=== PATIENT | male | born 1955 | race Caucasian/White ===

== ENCOUNTER 2016-08-06 11:15 | Observation (INO) | payer BC ==
[~2016-08-06] VITALS: Ht 172.7 cm; Wt 98.9 kg
--- NOTE | ~2016-08-06 | EKG ---
[address] [place] [place] [address] ELECTROCARDIOGRAM REPORT Name: CARISSA SHAH Room #: 438-P [facility].R.#: [id number] Admission: 08/06/16 Attend Phys: Luis Miguel Biswas MD Discharge: Date of : 51 Report #: [id number] THIS REPORT FOR: //name// [facility] ED Test Date: 2016-08-06 Test Time: 11:23:43 Pat Name: CARISSA SHAH Department: Room: 438 Gender: M Transcription Coordinator: NILESH : 1955 Requested By: Bernabe Dc Order Number: [id number] MD: Osito Rocha Measurements Intervals [place] Rate: 56 P: 50 IL: 133 QRS: 0 QRSD: 117 T: 5 QT: 440 QTc: 425 Interpretive Statements Sinus bradycardia Baseline wander in lead(s) V2 No previous ECG available for comparison Electronically Signed On 08-07-2016 8:47:18 CDT by Osito Rocha [email or web address] <ELECTRONICALLY SIGNED> By: Osito Rocha MD, [facility] 08/07/16 0847 [id number] 112 Osito Rocha MD, FACC /EPI
--- NOTE | ~2016-08-06 | HC ---
[facility] [place] [address] CONSULTATION Name: CARISSA SHAH Room #: 438-P [facility] Agueda Stern#: [id number] Admission: 08/06/16 Attend Phys: Luis Miguel Biswas MD Discharge: 08/07/16 Date of : 51 Report #: [id number] THIS REPORT FOR: //name// CC: Luis Miguel Payanie Bhavya HISTORY OF PRESENT ILLNESS: The patient is a 61-year-old gentleman with left shoulder and upper back pain for the past 8 days. He saw his family physician and was admitted through the emergency department for further evaluation. His history comes from interview with the patient as well as review provided outpatient records, which are summarized in the note. 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 Eight days ago, he developed left shoulder and upper back pain. This seemed to be worse with a deep breath. This pain has been persistent and unremitting, although has been worse at certain times. Exertion seems to make the pain worse. There is no real clear positional component to the pain. He was given a nitroglycerin that seemed to improve the pain, which never went completely away and has persisted. Serial EKGs have been normal. Initial troponin level is normal. Followup troponin is pending. He denies heart failure symptoms, palpitations, near syncope, or syncope. ALLERGIES: There are no known drug allergies. MEDICATIONS: Medicines include dapsone 25 mg daily and 800 mg daily. PAST MEDICAL HISTORY: His past history and medical records have been reviewed and include a history of macrocytosis, hemochromatosis, this is not required phlebotomy; sigmoid diverticulitis with a completed 10-day antibiotic course. He does report low grade fevers several days last week and ongoing crampy abdominal pain. 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 FAMILY HISTORY: Unremarkable for premature coronary artery disease. REVIEW OF SYSTEMS: All systems negative except as that noted above. PHYSICAL EXAMINATION: GENERAL: He is a pleasant gentleman, in no distress. VITAL SIGNS: Blood pressure is 128/77, heart rate of 50 and regular, he is afebrile, 5 feet 8 inches tall, 218 pounds. HEENT: There are neither xanthelasma, subcutaneous xanthomata, oral mucosal or digital cyanosis, or kyphoscoliosis present. CHEST: Clear to auscultation and percussion. CARDIAC: Regular rate and rhythm with normal S1, S2. No murmurs or rubs. ABDOMEN: Soft and nontender. [facility] [address] [address] CONSULTATION Name: CARISSA SHAH OLAF Room #: 438-P [facility] Agueda M.R.#: [id number] Admission: 08/06/16 Attend Phys: Luis Miguel Biswas MD Discharge: 08/07/16 Date of : 51 Report #: [id number] EXTREMITIES: Without cyanosis, clubbing or edema. Radial pulses are 2+. NEUROLOGIC: Alert with a nonfocal exam. LABORATORY DATA: EKG sinus rhythm with right ventricular condition delay. IMPRESSION: 1. Left chest and shoulder pain with mixed features for ischemia. There is a fairly consistent pleuritic component, possible musculoskeletal pain versus pleurisy. 2. Recent diverticulitis with recurrent crampy lower abdominal pain and low-grade fevers. 3. Prior tobacco dependency. RECOMMENDATIONS: 1. Serial cardiac enzymes. 2. Stress echocardiogram. 3. Consider GI evaluation for abdominal pain. Thank you for asking me to participate in the patient's care. <ELECTRONICALLY SIGNED> By: Osito Rocha MD, FACC 08/08/16 1619 [id number] Osito Rocha MD, FACC /nt
--- NOTE | ~2016-08-06 | EXE ---
[facility] [address] [place] [address] STRESS ECHOCARDIOGRAM Name: CARISSA SHAH Room #: 438-P [facility] [place] M.R.#: [id number] Admission: 08/06/16 Attend Phys: Luis Miguel Biswas MD Discharge: 08/07/16 Date of : 51 Date of Service: 08/07/16 1608 Report #: [id number] THIS REPORT FOR: //name// APPROVED REPORT Exam: Stress Echocardiogram Patient Location: In-Patient Room #: 438 HR: 62 bpm Procedure The patient underwent an Exercise Stress Test using the Simeon Protocol. Blood pressure, heart rate, and EKG were monitored. An Echocardiogram was performed by earth science technician in four stages in quad fashion. At peak stress, four selected images were obtained and placed side by side with resting images for comparison. Testing Details Test: Exercise stress testing was performed using a Simeon protocol. HR Resting HR: 62 bpm Max Heart Rate (APMHR): 157 bpm Max HR Achieved: 171 bpm Target HR (85% APMHR): 133 bpm % of APMHR: 108 Recovery HR: 80 bpm HR response to stress: Normal HR response to stress BP Resting BP: 138/92 mmHg Max BP: 200/80 mmHg Recovery BP: 130/74 mmHg ECG Resting ECG: Sinus Rhythm ST Change: Normal Maximum ST Deviation: 0 mm Recovery ECG: Sinus Rhythm Recovery ST Change: Non-ischemic Recovery ST Deviation: 0 mm Clinical Reason for Termination: Maximal effort Stress Symptoms: Dyspnea Exercise duration: 5.5 min [facility] [address] [address] STRESS ECHOCARDIOGRAM Name: CARISSA SHAH Room #: 438-P [facility] [place] [facility].#: [id number] Admission: 08/06/16 Attend Phys: Luis Miguel Biswas MD Discharge: 08/07/16 Date of : 51 Date of Service: 08/07/16 1608 Report #: [id number] Exercise capacity: 7 METs Overall Exercise Capacity for Age: Poor Angina Score: None Stress ECG Conclusion Kyle Treadmill Score is 5.5 which is Low risk. Pre-Stress Echo The resting Echocardiogram showed normal left ventricular contractility with an estimated Ejection Fraction of about >55%. Post-Stress Echo The stress Echocardiogram showed normal left ventricular contractility with an estimated Ejection Fraction of about 65-70%. Clinical Normal augmentation of myocardial wall segments using a 17 segment model. Conclusion Clinical Response: Non-ischemic Stress ECG Response: Non-ischemic Stress Echo Images: Non-ischemic Other Information Study Quality: Good <ELECTRONICALLY SIGNED> By: Osito Rocha MD, [facility] 08/07/16 1608 1608 1608 Osito Rocha MD, FACC /INF
[~2016-08-06 11:15] MED LIST: CIPRO500 MG PO; FLAGYL500 MG PO; NORCO 5-325 TA1 EACH PO
[2016-08-06 11:22] VITALS: BP 160/76
[2016-08-06 11:42] LABS: BASOPHILS 1.2 % (0.0-2.0); EOSINOPHILS 1.9 % (0.0-3.0); HEMATOCRIT 40.5 % (42.0-52.0); HEMOGLOBIN 14.2 gm/dL (14.0-18.0); LYMPHOCYTES 35.9 % (24.0-44.0); MANUAL DIFF NO; MCH 34.6 pg (26.0-34.0); MCHC 35.2 g/dL (28.0-37.0); MCV 98.4 fL (80.0-100.0); PLATELET COUNT 273 thou/uL (150-400); RBC 4.11 mil/uL (4.50-6.00); RDW 13.1 % (10.5-14.5); WBC 5.7 thou/uL (4.0-11.0)
[2016-08-06 11:54] LABS: ANION GAP 9 mmol/L (7-16); BUN 9 mg/dL (7-18); CALCIUM 8.8 mg/dL (8.5-10.1); CHLORIDE 106 mmol/L (98-107); CO2 25 mmol/L (21-32); CREATININE 1.1 mg/dL (0.7-1.3); GLUCOSE 95 mg/dL (74-106); POTASSIUM 4.3 mmol/L (3.5-5.1); SODIUM 140 mmol/L (136-145)
[2016-08-06 12:06] LABS: NT-PRO BRAIN NAT PEPTIDE 107 pg/mL (<300); TROPONIN-I < 0.04 ng/mL (<0.04-0.07)
[2016-08-06 12:51] LABS: URINE BILIRUBIN 1+ (Negative); URINE BLOOD NEGATIVE (Negative); URINE GLUCOSE-RANDOM* NEGATIVE (Negative); URINE KETONES NEGATIVE (Negative); URINE LEUKOCYTES-REFLEX NEGATIVE (Negative); URINE PROTEIN (DIPSTICK) TRACE (Negative); URINE SPECIFIC GRAVITY >= 1.030 (1.003-1.035)
[2016-08-06 13:00] LABS: ICTOTEST (BILI CONFIRMATORY) Positive (Negative); URINE COLOR DARK YELLOW
[2016-08-06 14:44] VITALS: BP 128/77
[2016-08-06] MEDS ORDERED: DAPSONE25 MG PO (14:46)
[2016-08-06] MEDS ORDERED: CIMETIDINE800 MG PO (14:46)
[2016-08-06] MEDS ORDERED: NEPHROCAPS SOFT1 CAP PO (14:47)
[2016-08-06 19:36] VITALS: BP 123/63
[2016-08-07 01:00] LABS: ANION GAP 6 mmol/L (7-16); BUN 13 mg/dL (7-18); CALCIUM 8.6 mg/dL (8.5-10.1); CHLORIDE 104 mmol/L (98-107); CO2 27 mmol/L (21-32); CREATININE 1.2 mg/dL (0.7-1.3); GLUCOSE 109 mg/dL (74-106); POTASSIUM 4.1 mmol/L (3.5-5.1); SODIUM 137 mmol/L (136-145)
[2016-08-07 01:07] LABS: ALBUMIN 2.9 g/dL (3.4-5.0); ALKALINE PHOSPHATASE 56 U/L (46-116); CHOLESTEROL 145 mg/dL (<200); HDL CHOLESTEROL 22 mg/dL (>40); MAGNESIUM 2.3 mg/dL (1.8-2.4); SGOT 29 U/L (15-37); SGPT 41 U/L (30-65); TC:HDL 6.6 Ratio (Not establshd); TOTAL BILIRUBIN 0.3 mg/dL (<0.1-1.0); TOTAL PROTEIN 6.4 g/dL (6.4-8.2); TRIGLYCERIDE 554 mg/dL (<150); TROPONIN-I < 0.04 ng/mL (<0.04-0.07); VLDL 111 mg/dL (<40)
[2016-08-07 05:23] VITALS: BP 137/75
[2016-08-07 07:55] VITALS: BP 119/69
[2016-08-07 10:44] VITALS: BP 119/69
== END 2016-08-07 11:18 | disposition home or self-care (01) ==
LOC: ER 11:15 → EROBS 13:59 → 4S 14:48
PROVIDERS: Emergency Medicine; Nurse Practitioner
DX: R07.89 Other chest pain (principal); R10.30 Lower abdominal pain, unspecified; L30.9 Dermatitis, unspecified; K57.92 Diverticulitis of intestine, part unspecified, without perforation or abscess without bleeding; E83.119 Hemochromatosis, unspecified; G47.30 Sleep apnea, unspecified; R00.1 Bradycardia, unspecified; J30.2 Other seasonal allergic rhinitis; M25.512 Pain in left shoulder; C80.1 Malignant (primary) neoplasm, unspecified; Z72.89 Other problems related to lifestyle; Z87.891 Personal history of nicotine dependence

== ENCOUNTER 2016-08-26 09:14 | Emergency (ER) | payer BC ==
[~2016-08-26] VITALS: Ht 172.7 cm; Wt 90.7 kg
[~2016-08-26 09:14] MED LIST changes: +CIMETIDINE800 MG PO; +DAPSONE25 MG PO; +NEPHROCAPS SOFT1 CAP PO
[2016-08-26] MEDS ORDERED: AUGMENTIN 875875 MG PO (09:40)
== END 2016-08-26 10:17 | disposition home or self-care (01) ==
LOC: ER 09:14
DX: S60.943A Unspecified superficial injury of left middle finger, initial encounter (principal); L03.90 Cellulitis, unspecified; Z85.828 Personal history of other malignant neoplasm of skin; G47.30 Sleep apnea, unspecified; Z90.49 Acquired absence of other specified parts of digestive tract; Z87.891 Personal history of nicotine dependence; X58.XXXA Exposure to other specified factors, initial encounter; Y93.89 Activity, other specified; Y92.89 Other specified places as the place of occurrence of the external cause; Y99.9 Unspecified external cause status

== ENCOUNTER 2017-05-20 19:24 | Inpatient (IN) | payer BC ==
[~2017-05-20] VITALS: Ht 172.7 cm; Wt 99.0 kg
[~2017-05-20 19:24] MED LIST changes: +AUGMENTIN 875875 MG PO
[2017-05-20 19:27] VITALS: BP 140/91
[2017-05-20 19:50] LABS: URINE BILIRUBIN NEGATIVE (Negative); URINE BLOOD NEGATIVE (Negative); URINE CLARITY CLEAR; URINE COLOR YELLOW; URINE GLUCOSE-RANDOM* NEGATIVE (Negative); URINE KETONES NEGATIVE (Negative); URINE LEUKOCYTES-REFLEX NEGATIVE (Negative); URINE NITRITE-REFLEX NEGATIVE (Negative); URINE PROTEIN (DIPSTICK) NEGATIVE (Negative); URINE UROBILINOGEN 0.2 E.U./dl (0.2-1.0)
[2017-05-20] MEDS ORDERED: FLAGYL500 MG PO (20:03)
[2017-05-20] MEDS ORDERED: CIPRO500 MG PO (20:03)
[2017-05-20] MEDS ORDERED: ASPIR 8181 MG PO (20:04)
[2017-05-20 20:18] LABS: ABSOLUTE NEUTROPHILS 7.8 thou/uL (1.4-8.2); BASOPHILS 0.9 % (0.0-2.0); EOSINOPHILS 2.1 % (0.0-3.0); HEMATOCRIT 43.8 % (42.0-52.0); HEMOGLOBIN 15.3 gm/dL (14.0-18.0); LYMPHOCYTES 21.1 % (24.0-44.0); MCH 34.6 pg (26.0-34.0); MCHC 34.9 g/dL (28.0-37.0); MCV 99.1 fL (80.0-100.0); PLATELET COUNT 372 thou/uL (150-400); POLYS 66.9 % (36.0-66.0); RBC 4.41 mil/uL (4.50-6.00); RDW 12.7 % (10.5-14.5); WBC 11.6 thou/uL (4.0-11.0)
[2017-05-20 20:25] LABS: CALCIUM 9.4 mg/dL (8.5-10.1); CREATININE 1.4 mg/dL (0.7-1.3)
[2017-05-20 20:31] LABS: TOTAL BILIRUBIN 0.5 mg/dL (<0.1-1.0); TOTAL PROTEIN 7.5 g/dL (6.4-8.2)
[2017-05-20 23:08] VITALS: BP 121/72
[2017-05-20 23:19] VITALS: BP 126/79
[2017-05-21 03:38] VITALS: BP 114/72
[2017-05-21 07:44] VITALS: BP 121/75
[2017-05-21 16:55] VITALS: BP 125/70
[2017-05-21 22:20] VITALS: BP 98/56
[2017-05-22 04:12] VITALS: BP 97/59
[2017-05-22 04:31] LABS: ABSOLUTE NEUTROPHILS 3.2 thou/uL (1.4-8.2); BASOPHILS 1.1 % (0.0-2.0); EOSINOPHILS 4.1 % (0.0-3.0); HEMATOCRIT 35.2 % (42.0-52.0); LYMPHOCYTES 32.2 % (24.0-44.0); MCH 34.2 pg (26.0-34.0); MCV 100.4 fL (80.0-100.0); MONOCYTES 9.1 % (1.0-8.0); POLYS 53.5 % (36.0-66.0); RBC 3.51 mil/uL (4.50-6.00); RDW 12.6 % (10.5-14.5)
[2017-05-22 04:37] LABS: PLATELET COUNT 245 thou/uL (150-400)
[2017-05-22 04:48] LABS: CALCIUM 8.1 mg/dL (8.5-10.1); CREATININE 1.3 mg/dL (0.7-1.3); POTASSIUM 3.9 mmol/L (3.5-5.1)
[2017-05-22 07:25] VITALS: BP 122/65
[2017-05-22 15:20] VITALS: BP 149/70
[2017-05-22 21:00] VITALS: BP 135/73
[2017-05-23 04:08] LABS: ABSOLUTE NEUTROPHILS 2.5 thou/uL (1.4-8.2); BASOPHILS 0.9 % (0.0-2.0); HEMATOCRIT 34.9 % (42.0-52.0); HEMOGLOBIN 12.1 gm/dL (14.0-18.0); LYMPHOCYTES 42.1 % (24.0-44.0); MCH 34.5 pg (26.0-34.0); MCHC 34.7 g/dL (28.0-37.0); MCV 99.4 fL (80.0-100.0); PLATELET COUNT 263 thou/uL (150-400); RBC 3.51 mil/uL (4.50-6.00); RDW 12.4 % (10.5-14.5); WBC 5.8 thou/uL (4.0-11.0)
[2017-05-23 04:25] LABS: ALBUMIN 2.9 g/dL (3.4-5.0); CALCIUM 8.4 mg/dL (8.5-10.1); CREATININE 1.2 mg/dL (0.7-1.3); POTASSIUM 3.8 mmol/L (3.5-5.1); TOTAL BILIRUBIN 0.7 mg/dL (<0.1-1.0); TOTAL PROTEIN 5.8 g/dL (6.4-8.2)
[2017-05-23 04:30] VITALS: BP 128/69
[2017-05-23 04:52] LABS: TSH 1.631 uIU/mL (0.358-3.740)
[2017-05-23 05:26] LABS: FOLIC ACID > 40.0 ng/mL (8.6-58.9)
[2017-05-23 07:45] VITALS: BP 120/80; BP 156/115
[2017-05-23] MEDS ORDERED: INVANZ 1GM/NS 101 GM IV (13:58)
[2017-05-23 14:31] VITALS: BP 120/80
[2017-05-23 15:54] VITALS: BP 148/68
[2017-05-23 16:01] VITALS: BP 135/775
== END 2017-05-23 16:12 | disposition home health service (06) | DRG 392 ==
LOC: ER 19:24 → 4E 22:25 → EROBS 22:25 → 4E 23:09 → ENTRNSPT 05-23 15:56 → 4E 05-23 16:12
PROVIDERS: Emergency Medicine; Hospitalist; Internal Medicine Gastroenterology
DX: K57.92 Diverticulitis of intestine, part unspecified, without perforation or abscess without bleeding (principal); R74.0 Nonspecific elevation of levels of transaminase and lactic acid dehydrogenase [LDH]; K76.0 Fatty (change of) liver, not elsewhere classified; G47.33 Obstructive sleep apnea (adult) (pediatric); L30.9 Dermatitis, unspecified; Z87.891 Personal history of nicotine dependence; Z85.118 Personal history of other malignant neoplasm of bronchus and lung; Z90.49 Acquired absence of other specified parts of digestive tract; Z79.82 Long term (current) use of aspirin; Z79.899 Other long term (current) drug therapy
CPT/HCPCS: 10084; 27001